=== PATIENT | female | born 1970 | race Caucasian/White ===

== ENCOUNTER → 2022-04-09 | Outpatient (CLI) | payer OTHER, SELFPAY ==
--- NOTE | 2022-04-09 08:30 | BRBX_PTH ---
PATIENT: CHARLEEN HENDERSON LOC: [facility] U#:[id number] AGE/SX: 52/F ROOM: RE04/09/[address]: Dr. Charu Santamaria MD : 1970 BED: DIS: 04/09/2022 SPEC #: [id number] RECD: 04/09/22 09:04 STATUS: DELIO RONNY #: [id number] ANTWON: 04/09/22 08:[address]: Charu Santamaria DEPT: SURGICAL PATHOLOGY RECD BY: Sandy Caballero Tissues: Left breast, NOS Procedures: Surgery Specimen Level IV HEADER OPERATION: Left breast mass biopsy PRE-OP DIAGNOSIS: Left breast mass TISSUE SUBMITTED: Left breast tissue 4 o?clock, 6 cm from nipple FIXATION TIME: 11 hours MICROSCOPIC DIAGNOSIS Left breast at 5 o?clock, core biopsy: Densely collagenized stroma. Focal non-proliferative fibrocystic change. Lobular involutional change. Focal banal microcalcifications. No evidence of malignancy. AM:mckenna 04/10/2022 COMMENT This case was discussed with Dr. Santamaria 04/10/[address] Olivo MICROSCOPIC DESCRIPTION Slides are reviewed. GROSS DESCRIPTION Received in fixative is one container labeled with the patient's name and designated left breast tissue. The specimen consists of multiple elongated fragments of belle-yellow tissue that in aggregate measure 1.5 x 0.2 x 0.1 cm. The specimen is totally submitted in one cassette. / AM:mckenna 04/09/2022 TC:5 CPT: 49036
== END | disposition home or self-care (01) ==
PROVIDERS: Visit Provider Surgery
DX: N60.12 Diffuse cystic mastopathy of left breast (principal)
CPT/HCPCS: 88305

== ENCOUNTER 2022-04-28 09:14 | Day surgery (SDC) | payer OTHER, SELFPAY ==
--- NOTE | 2022-04-28 09:50 | HP.PCM_ITS ---
History and Physical Date of Admission: 04/28/22 Date of Service:? 04/21/22 MR#: [id number] Acct: [id number] Name:CHARLEEN VOGT Rep #: [id number] : 1970 ? ? Provider: Dr. Charu Santamaria MD Age/Sex:? 52/F ? ? [place] [facility] [place] [place] Status: Signed Intake Intake Visit Reasons:?DISCUSS RESULTS Chief Complaint: birads left breast Allergies sulfamethoxazole [From Bactrim] Allergy (Intermediate, Verified 04/22/22 10:03) Swellingtrimethoprim [From Bactrim] Allergy (Intermediate, Verified 04/22/22 10: 03) Swelling Medications aspirin 81 mg chewable tablet 81 mg PO DAILY 04/09/22 [History Confirmed 04/22/22] cholecalciferol (vitamin D3) 125 mcg (5,000 unit) capsule 125 mcg PO DAILY 04/09/22 [History Confirmed 04/22/22] PFSH Medical History?(Updated 04/22/22 @ 10:11 by Yanelis White) Alcohol use Easy bruising Excessive bleeding H/O: stroke History of echocardiogram Non-smoker Wears glasses Surgical History?(Updated 04/22/22 @ 10:11 by Yanelis White) History of back surgery History of endometrial ablation History of tubal ligation Family History? Father Colon cancerMother Hypertension Social History? Smoking Status:? Never smoker alcohol intake:? current alcohol intake frequency: a few times a month substance use type:? does not use HPI HPI Surgical H&P: Yes HPI: 52-year-old female presents status post left breast biopsy to discuss pathology with her .? Pathology showed dense colonized stroma, no malignancy.? On reviewing the ultrasound the lesion is irregular with shadowing however the report does not state this and only states that hypoechoic.? Thus it is discordant and recommend excisional biopsy. ROS Breast Breast: Yes left breast lump, abnormal mammogram and abnormal US; No right breast lump, nipple discharge or breast enlargement Exam Const General: cooperative, healthy appearing, comfortable and no acute distress Neck Neck: normal visual inspection Chest Other: Left breast: Previous biopsy site healing well. Resp Effort & Inspection: normal respiratory effort Cardio Rate: regular rate GI Inspection: non-distended Palpation: soft Skin General: no rashes or lesions noted Neuro General: patient oriented x3 Psych Affect: normal affect Assessment and Plan Assessment and Plan (1) Breast mass, left: ?Status:?Acute Plan We will plan for an excisional left breast biopsy with ultrasound-guided wire localization.? Discussed the procedure including risk including but not limited to bleeding, infection, need for further surgery.? Patient and her are agreeable with plan. Charu Santamaria M.D. Pager: [phone] [facility] [address] [place] [address], [address] [place] [address] Office: [phone] Coding Level of Care Code Off vis,est,level 3 Diagnoses Breast mass, left? N63.20 04/22/22 1419 <Electronically signed by Charu Santamaria MD> Date Charu Santamaria MD
[2022-04-28 10:07] VITALS: BP 127/89; PULSE 77; RESP 18; TEMP 36.6; O2SAT 99; BMI 28.2
[2022-04-28] MEDS: Lactated Ringers 1,000 ML 15 ML IV (10:09)
[2022-04-28] MEDS: Cefazolin 2 GM in 0.9% Normal Saline 100 ML IV (12:00)
--- NOTE | 2022-04-28 12:33 | BR_PTH ---
PATIENT: CHARLEEN HENDERSON LOC: [facility] [place] U#:[id number] AGE/SX: 52/F ROOM: RE04/28/[address]: Dr. Charu Santamaria MD : 1970 BED: DIS: 04/28/2022 SPEC #: [id number] RECD: 04/28/22 12:37 STATUS: DELIO REEarlene #: [id number] ANTWON: 04/28/22 12:[address]: Charu Santamaria DEPT: SURGICAL PATHOLOGY RECD BY: Sandy Caballero ENTERED: 04/28/22 13:05 SP TYPE: MAMOPLASTY OTHR DR: Keli Brantley PA-C Tissues: Left breast, NOS Procedures: Surgery Specimen Level V HEADER OPERATION: Left breast ultrasound-guided wire localization, excisional biopsy PRE-OP DIAGNOSIS: Left breast mass TISSUE SUBMITTED: Left breast excisional biopsy (short suture - superior, long suture - lateral) MICROSCOPIC DIAGNOSIS Left breast, excisional biopsy with wire localization: Fibrocystic changes and intraductal hyperplasia without atypia. Fibroadenoma (0.5 cm in greatest dimension). Extensive dense fibrosis. Changes consistent with previous biopsy site. Negative for malignancy. RUDDY:mckenna 05/01/2022 COMMENT Please make reference to previous specimen ([id number]) left breast at 5 o?clock, core biopsy with diagnosis of ?densely collagenized stroma, focal nonproliferative fibrocystic change and lobular involution.? MICROSCOPIC DESCRIPTION Slides are reviewed. GROSS DESCRIPTION Received in fixative is one container labeled with the patient's name and designated left breast excisional biopsy. The specimen consists of a piece of fibroadipose tissue with wire localization measuring 4 x 3.5 x 3 cm. The specimen is oriented as follows: short suture - superior, long suture - lateral. The specimen is inked as follows: anterior - yellow, posterior - black, superior - blue, inferior - green, medial - red and lateral - orange. Sections reveal belle, indurated cut surfaces. No well-defined mass is identified. The entire specimen is submitted in 11 cassettes from lateral to medial margin. Sections will be submitted after additional fixation. Cassette 1 contains the most lateral margin and cassette 11 contains the medial margin. / RUDDY:mckenna 04/29/2022 TC:5 CPT: 10265
--- NOTE | 2022-04-28 12:34 | BI_ITS ---
SURGICAL BREAST SPECIMEN RADIOGRAPH CLINICAL: Document presence of tissue clip marker in biopsy specimen. FINDINGS: Specimen shows presence of tissue clip marker. Electronically Signed: Efrem Lynn MD at 13:00 EST , BI/Breast Biopsy Specimen IMPRESSION: undefined
--- NOTE | 2022-04-28 12:36 | OP.PCM_ITS ---
Report of Operation Date of Procedure: 04/28/22 Pre-Operative Diagnosis: Left breast mass Post-Operative Diagnosis: Same Surgery/Procedure Performed:: Left breast ultrasound-guided wire localization excisional breast biopsy Surgeon: Charu Santamaria program facilitator: Debbie Sotomayor Type of Anesthesia: General/Supplemental Anesthesiologist: Kwaku Jj Special Medications: Ancef 2 g IV x1 Specimen's removed: Left breast mass Estimated Blood Loss (mL): < 10 cc Description of Procedure: The patient was taken to the operating room and general anesthesia was induced. The left breast and axilla were prepped and draped in usual sterile fashion. A timeout was completed verifying correct patient, procedure, site, positioning, special equipment prior to beginning procedure. Ultrasound was use for localization of the breast mass using the Kopan's needle. The wire was placed at the mass. A radial incision was planned in such a way as to minimize the amount of dissection to reach the mass. Flaps were raised in the location of the wire confirmed. The wire was delivered into the wound. 2 silk [id number] stay suture was placed around the wire and used for traction. Dissection was then taken down circumferentially, taking care to include the entire localization needle and wide margin of grossly normal tissue. The specimen and entire localizing wire were removed. The specimen was oriented and sent to radiology with the localization studies. Confirmation was received that the entire target lesion had been resected. The cavity was irrigated. Hemostasis was checked. The breast incision was closed with interrupted sutures of 3-0 Vicryl and subcuticular sutures of 4-0 Monocryl. No attempt was made to close the space. Steri-Strips and OpSite and supportive bra placed. The patient tolerated procedure well was taken to the postanesthesia care in stable condition Complications none
[2022-04-28] MEDS: Bupivacaine 0.25%-Epi/Pf 1:200,000 10 ML (12:37)
--- NOTE | 2022-04-28 12:42 | DCINST_ITS ---
Discharge Instructions Diet Discharge Diet: No restrictions Activity Discharge Activity: May Not Drive (for 2-3 days or while taking narcotic pain meds.) May shower in (days): 1 Lifting Restrictions: 10 pounds for 1 week. Dressing / Incision Call your doctor if your incision/area has: Continuous Slow Oozing, Sudden Increased Bleeding, Increased Pain/ Swelling and Increased Redness Call your doctor if you observe: Fever of 101 or Higher Suture Line Care: Avoid Pulling/Pushing and Avoid Pinching/Bending Remove Dressing in: 1 day Additional Dressing/Incision Instructions:: Remove bulky dressing tomorrow. May leave any op-site dressing for 3-4 days. Okay to remove Steri-Strips from the breast incision in 7 to 10 days. Follow Up Care Please Follow Up With: Charu Santamaria MD When: Please call [phone] for an appointment to be seen in 2 week. Test Results: Test results from this visit will be discussed in further detail at your follow- up appointment, if applicable. Discharge Plan Admission Attending Provider: Charu Santamaria Primary Care Provider: Keli Brantley Discharge Orders/Prescriptions Prescriptions: New hydrocodone-acetaminophen 5-325 mg tablet 1 tab PO Q6H PRN (Reason: pain) 2 Days Qty: 5 0RF Continued cholecalciferol (vitamin D3) 125 mcg (5,000 unit) capsule 125 mcg PO DAILY Held aspirin 81 mg tablet,chewable 81 mg PO DAILY Hold Instructions: Resume on 04/30/22. Referrals / Follow Up: Keli Brantley PA-C [Primary Care Provider] - Disposition Disposition (needs filled in before D/C Order can be placed): Home, Self Care
[2022-04-28 12:54] VITALS: BP 107/77; BP 127/89; PULSE 78; RESP 16; TEMP 36.4; O2SAT 96
[2022-04-28 12:59] VITALS: BP 105/74; BP 127/89; PULSE 76; RESP 16; O2SAT 97
[2022-04-28 13:15] VITALS: BP 117/71; BP 127/89; PULSE 73; RESP 16; O2SAT 99
[2022-04-28 13:30] VITALS: BP 114/86; BP 127/89; PULSE 60; RESP 16; TEMP 36.2; O2SAT 99
[2022-04-28 14:43] VITALS: BP 127/89
== END 2022-04-28 14:50 | disposition home or self-care (01) ==
LOC: SDC 09:21 → AC 09:22
PROVIDERS: PCP Family Medicine; Referring Provider Surgery; Visit Provider Surgery
PROC: (CPT 19125; principal; 2022-04-28 10:45)
DX: D24.2 Benign neoplasm of left breast (principal); Z92.89 Personal history of other medical treatment; N60.12 Diffuse cystic mastopathy of left breast; Z79.82 Long term (current) use of aspirin; R23.3 Spontaneous ecchymoses; Z86.73 Personal history of transient ischemic attack (TIA), and cerebral infarction without residual deficits
CPT/HCPCS: 19125; 00400; 76098; 88305; 88307; J7120; J2405

== ENCOUNTER 2024-12-27 11:11 | Day surgery (SDC) | payer OTHER, SELFPAY ==
[2024-12-27] VITALS (8 sets, daily range): BP systolic 107–139; BP diastolic 69–91; PULSE 66–84; RESP 12–20; TEMP 36.2–36.4; O2SAT 95–100; BMI 27.8
[2024-12-27] MEDS: Lactated Ringers 1,000 ML 15 ML IV (11:39)
--- NOTE | 2024-12-27 11:46 | H&P.OPEN ---
[facility] - General General Date of Service: 12/27/24 HPI Narrative CHARLEEN HENDERSON, is a 54 F who presents for screening colonoscopy. Patient never had previous colonoscopy. Patient's father did have colon cancer diagnosed age less than 60. Patient denies any chronic abdominal pain/nausea/vomiting/reflux. Patient has bowel movements every other day denies any blood. [facility] Medical History (Updated 12/27/24 @ 11:[address] Charu Santamaria MD) Wears glasses Alcohol use Non-smoker History of echocardiogram H/O: stroke Home Medications ?Medication ?Instructions ?Recorded ?Last Taken ?Type aspirin 81 mg chewable tablet 81 mg PO DAILY 04/09/22 12/19/24 History cholecalciferol (vitamin D3) 125 125 mcg PO DAILY 04/09/22 12/26/24 History mcg (5,000 unit) capsule Allergy/AdvReac Type Severity Reaction Status Date / Time sulfamethoxazole (From Allergy Intermediate Swelling Verified 12/27/24 11:38 Bactrim) trimethoprim (From Bactrim) Allergy Intermediate Swelling Verified 12/27/24 11:38 Family History Father Colon cancer Mother Hypertension Surgical History (Updated 12/25/24 @ 16:09 by Maurisio Matute) S/P lumpectomy, left breast History of endometrial ablation History of tubal ligation History of back surgery Social History Smoking Status: Never smoker alcohol intake: current alcohol intake frequency: a few times a month substance use type: does not use Past Medical/Surgical History Planned Operation Planned Operative Procedure(s): COLONOSCOPY Previous Hospitalizations/Surgeries HX Hospitalizations: No Any Problems With Anesthesia: No You/Your Family Experience Fever (Hyperthermia) With Anes: No Cholinesterase deficiency: No Cardiovascular Hx of Irregular Heartbeat and/or Afib: No Hx Heart Attack: No Hx Congestive Heart Failure: No Hx Hypertension: No Hx Pacemaker: No Respiratory Hx Chronic Obstructive Pulmonary Disease (COPD): No Hx Asthma: No Hx Emphysema: No Hx Sleep Apnea: No Hx Respiratory Tract Infection/Cold (presently): No Do You Snore Loudly (louder than talking or can be heard): No Do You Often Feel Tired/ Fatigued/ Sleepy Dring Daytime?: No Has Anyone Observed You Stop Breathing During Sleep?: No Result (for STOP score): Negative Smoking Status: Never smoker Gastrointestinal Hx Ulcer: No Neurological Hx Seizures: No Hx Head/Neck Injury: Yes Hx Headaches: Yes Hx Back Injury/Pain: Yes Does patient have nerve stimulator: No Miscellaneous Recent Exposure to Contagious Disease: No Allergies sulfamethoxazole (From Bactrim) Allergy (Intermediate, Verified 12/27/24 11:38) Swelling face trimethoprim (From Bactrim) Allergy (Intermediate, Verified 12/27/24 11:38) Swelling face Discharge After D/C, Where Do you Plan to Go: Return Home Vital Signs Vital Signs Vital Signs: 12/27/24 11:39 12/27/24 11:39 Temperature 97.6 F L Temperature Source Temporal Pulse Rate 66 Respiratory Rate 17 Respiratory Pattern Normal Blood Pressure 139/91 H Blood Pressure Mean 107 Blood Pressure Source Monitor Blood Pressure Position Semi-Fowlers Blood Pressure Location Right Arm Pulse Ox 100 Oxygen Delivery Method Room Air Weight Weight: 152 lb 1.903 oz Body Mass Index (BMI) 27.8 Physical Exam Const alert, oriented x3 and no apparent distress HEENT normocephalic and head/scalp atraumatic Resp normal respiratory effort Cardio regular rate GI soft to palpation and non-tender; Negative for non-distended Palpation: Negative for guarding Extremity no clubbing, cyanosis or edema Skin no rashes or lesions noted Neuro CN's II-XII intact bilaterally Psych mental status grossly normal Assessment & Plan Assessment/Plan (1) Encounter for screening for malignant neoplasm of colon: (2) Family history of colon cancer in father: Surgery Risks - Colonoscopy I discussed with the patient the risks of the procedure: Yes Risks Include but are not Limited To: Risks include but are not limited to: Bleeding, perforation requiring further surgery, inability to complete colonoscopy requiring barium enema.
--- NOTE | 2024-12-27 12:23 | PCM.PRE.AN2 ---
ASA Classification* ASA Classification ASA Classification: 2 Assessment & Plan Anesthesia* Anesthesia Assessment Anesthesia Assessment: Discussed sedation and/or anesthesia options, risks, benefits, and alternatives with patient/parents/legal guardian/POA. Questions invited. The patient/parents/legal guardian/POA seems to understand and agrees to proceed with anesthesia plan. Reviewed the physical assessment, medical history, allergy history and patient home medications list prior to surgery/procedure/anesthetic and documented any changes. Performed airway and anesthesia risk assessments. Anesthesia Type Anesthesia Type: MAC History Source History Obtained from:: Patient and Chart Anesthesia Focused Assessment* Temperature: 97.6 F Pulse Rate: 66 Blood Pressure: 139/91 Respiratory Rate: 17 Pulse Ox: 100 Oxygen Delivery Method: Room Air Airway Assessment Mouth opens: >3 cm Mallampati Score: II Teeth Condition: Missing (Patient has couple missing teeth. 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 When Was Last Pacemaker Check QUESTION #4 FULL TEXT: You/Your Family Experience fever (hyperthermia) with Anesthesia Last Oral Intake Last Oral intake: Last Oral Intake NPO since 00:00 12/27/24 11:39 Meds taken in AM with sips of water? Meds patient instructed to take am of surgery PONV PONV - filler shredding machine loader: PONV - filler shredding machine loader Female Yes 12/25/24 16:06 HX of Motion Sickness No 12/25/24 16:06 HX of N/V After Surgery No 12/25/24 16:06 Non-Smoker Yes 12/25/24 16:06 Duration of Surgery greater No 12/25/24 16:06 than 60 minutes Number of Risk Factors 2 12/25/24 16:06 PONV Score Moderate Risk 12/25/24 16:06 Height & Weight Height & Weight: Anesthesia: Height & Weight Height 5 ft 2 in 12/27/24 11:39 Weight: 69 kg 12/27/24 11:39 Body Mass Index (BMI) 27.8 12/27/24 11:39 Respiratory Assessment Respiratory Assessment - filler shredding machine loader: Respiratory Tract Infection Hx - filler shredding machine loader Hx Respiratory Tract Infection No 12/27/24 11:47 STOP Sleep Apnea STOP Sleep Apnea - filler shredding machine loader: STOP Sleep Apnea - filler shredding machine loader Hx Hypertension No 12/27/24 11:47 Hx Sleep Apnea No 12/27/24 11:47 CPAP BIPAP Do you snore loudly (louder No 12/27/24 11:47 than talking or can be heard Do you often feel tired/ No 12/27/24 11:47 fatigued/ sleepy during daytime? Has anyone observed you stop No 12/27/24 11:47 breathing during sleep? STOP Results Negative 12/27/24 12:20 QUESTION #5 FULL TEXT : Do you snore loudly (louder than talking or can be heard through closed doors)? 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 Specify any problems Hx of Preganancy in last 3 No 12/25/24 16:06 Months Nurse Filling Out Transfusion [id number] 12/25/24 16:06 & Questions: Date: 12/25/24 12/25/24 16:06 Time: 16:07 12/25/24 16:06 Patient unable to answer at this time (ie. confused, unrespo /Reproduction History /Reproductive History - filler shredding machine loader: /Reproductive Hx- filler shredding machine loader Hx Now Gestational Age (in weeks): EDC: Hx Hx Para Hx Section SAB No 12/25/24 16:06 Active Medications Active Medications: Current Medications Generic Name Dose Route Start Last Admin Trade Name Freq PRN Reason Stop Dose Admin Lactated Ringer's 1,000 mls @ 15 mls/hr 12/27/24 11:30 12/27/24 11:39 IV 15 mls/hr .Q48H QUINN Administration PFSH Medical History Wears glasses Alcohol use Non-smoker History of echocardiogram H/O: stroke Home Medications ?Medication ?Instructions ?Recorded ?Last Taken ?Type aspirin 81 mg chewable tablet 81 mg PO DAILY 04/09/22 12/19/24 History cholecalciferol (vitamin D3) 125 125 mcg PO DAILY 04/09/22 12/26/24 History mcg (5,000 unit) capsule Allergy/AdvReac Type Severity Reaction Status Date / Time sulfamethoxazole (From Allergy Intermediate Swelling Verified 12/27/24 11:38 Bactrim) trimethoprim (From Bactrim) Allergy Intermediate Swelling Verified 12/27/24 11:38 Family History Father Colon cancer Mother Hypertension Surgical History S/P lumpectomy, left breast History of endometrial ablation History of tubal ligation History of back surgery Social History Smoking Status: Never smoker alcohol intake: current alcohol intake frequency: a few times a month substance use type: does not use Review of Systems (Anesthesia) ROS Narrative System reviewed and no additional complaints, except as documented.
--- NOTE | 2024-12-27 12:30 | COLBX_PTH ---
PATIENT: CHARLEEN HENDERSON LOC: [facility] U#:[id number] AGE/SX: 54/F ROOM: RE12/27/[address]: Dr. Charu Satnamaria MD : 1970 BED: DIS: 12/27/2024 SPEC #: [id number] RECD: 12/27/24 13:51 STATUS: DELIO REEarlene #: [id number] ANTWON: 12/27/24 12:[address]: Charu Santamaria DEPT: SURGICAL PATHOLOGY RECD BY: Chano Calderon ENTERED: 12/27/24 14:34 SP TYPE: COLON BX OTHR DR: Keli Brantley PA-C Tissues: A - Ascending colon B - Sigmoid colon biopsy C - Rectum, NOS Procedures: Surgery Specimen Level IV HEADER OPERATION: Colonoscopy PRE-OP DIAGNOSIS: Encounter for screening for malignant neoplasm of colon, family history of colon cancer in father TISSUE SUBMITTED: A- Ascending colon polyp, B- Sigmoid biopsy, C- Rectum biopsy MICROSCOPIC DIAGNOSIS A. Large intestine, ascending polyp, biopsies: - Tubular adenoma - Increased pigmented macrophages in the lamina propria, suggesting melanosis coli B. Large intestine, sigmoid polyp: * Tubular adenoma * Increased pigmented macrophages in the lamina propria, suggesting melanosis coli C. Rectum: * Hyperplastic polyp * Increased pigmented macrophages in the lamina propria, suggesting melanosis coli MICROSCOPIC DESCRIPTION Slides are reviewed. GROSS DESCRIPTION A. Received in fixative is one container labeled with the patient's name and designated Ascending colon polyp. The specimen consists of two irregular fragments of light belle tissue, each measuring 0.3 cm. The specimen is totally submitted in one cassette. B. Received in fixative is one container labeled with the patient's name and designated Sigmoid biopsy. The specimen consists of one irregular fragment of light belle tissue that measures 0.4 cm. The specimen is totally submitted in one cassette. C. Received in fixative is one container labeled with the patient's name and designated Rectum biopsy. The specimen consists of two irregular fragments of light belle tissue that measure 0.3 and 0.5 cm. The specimen is totally submitted in one cassette. AR 12/27/2024 CPT:29961a9
[2024-12-27] MEDS: Lactated Ringers 1,000 ML 1000 ML IV (13:14)
--- NOTE | 2024-12-27 13:37 | OP.PROVAT_ITS ---
12/27/2024 Keli [place] Re : Colonoscopy procedure for Alexa Brantley This procedure was performed on Friday, December 27, 2024. My impressions and recommendations are as follows: Impressions : - Melanosis in the colon. - Four less than 5 mm polyps in the rectum, in the sigmoid colon and in the ascending colon, removed with a cold biopsy forceps. Resected and retrieved. - One less than 5 mm polyp in the ascending colon, removed with a cold snare. Resected and retrieved. - The examination was otherwise normal on direct and retroflexion views. Recommendations : - Discharge patient to home. - Resume previous diet. - Continue present medications. - Await pathology results. - Repeat colonoscopy in 3 years for surveillance based on pathology results. My findings are described in the full procedure note, which is enclosed. If I can be of further assistance, please feel free to contact me at Doctor phone number(s): , Work: . Sincerely, MD Charu Krueger MD 12/27/2024 1:37:03 PM This report has been signed electronically.
--- NOTE | 2024-12-27 13:37 | OP.COLON_ITS ---
Patient Name: Alexa Valero Procedure Date: 12/27/2024 1:02 PM Date of : 1970 Age: 54 Procedure: Colonoscopy Indications: Screening in patient at increased risk: Colorectal cancer in father before age 60 Providers: Charu Santamaria MD Referring MD: Charu Santamaria MD Medicines: Monitored Anesthesia Care Patient Profile: This is a 54 year old female. Last Colonoscopy: none. The patient's first colonoscopy is today. Complications: No immediate complications. Procedure: Pre-Anesthesia Assessment: - Prior to the procedure, a History and Physical was performed, and patient medications and allergies were reviewed. The patient's tolerance of previous anesthesia was also reviewed. The risks and benefits of the procedure and the sedation options and risks were discussed with the patient. All questions were answered, and informed consent was obtained. Prior Anticoagulants: The patient has taken no anticoagulant or antiplatelet agents. ASA Grade Assessment: Per anesthesia. After reviewing the risks and benefits, the patient was deemed in satisfactory condition to undergo the procedure. After I obtained informed consent, the scope was passed under direct vision. Throughout the procedure, the patient's blood pressure, pulse, and oxygen saturations were monitored continuously. The Colonoscope was introduced through the anus and advanced to the cecum, identified by the appendiceal orifice, ileocecal valve and palpation. The colonoscopy was performed without difficulty. The patient tolerated the procedure well. The quality of the bowel preparation was good. Scope In: 1:13:59 PM Scope Withdrawal Time 0 hours 12 minutes 50 seconds Scope Out: 1:31:20 PM Total Procedure Duration Time 0 hours 17 minutes 21 seconds Findings: The perianal and digital rectal examinations were normal. An area of melanosis was found in the entire colon. Four sessile polyps were found in the rectum, sigmoid colon and ascending colon. The polyps were less than 5 mm in size. These polyps were removed with a cold biopsy forceps. Resection and retrieval were complete. A less than 5 mm polyp was found in the ascending colon. The polyp was sessile. The polyp was removed with a cold snare. Resection and retrieval were complete. The exam was otherwise without abnormality on direct and retroflexion views. Impression: - Melanosis in the colon. - Four less than 5 mm polyps in the rectum, in the sigmoid colon and in the ascending colon, removed with a cold biopsy forceps. Resected and retrieved. - One less than 5 mm polyp in the ascending colon, removed with a cold snare. Resected and retrieved. - The examination was otherwise normal on direct and retroflexion views. Recommendation: - Discharge patient to home. - Resume previous diet. - Continue present medications. - Await pathology results. - Repeat colonoscopy in 3 years for surveillance based on pathology results. Procedure Code(s): --- Professional --- 93205, PT, Colonoscopy, flexible; with removal of tumor(s), polyp(s), or other lesion(s) by snare technique 15157, 59, Colonoscopy, flexible; with biopsy, single or multiple Diagnosis Code(s): --- Professional --- Z80.0, Family history of malignant neoplasm of digestive organs K63.89, Other specified diseases of intestine D12.8, Benign neoplasm of rectum D12.5, Benign neoplasm of sigmoid colon CPT copyright 2021 [employer]. All rights reserved. The codes documented in this report are preliminary and upon greige goods inspector review may be revised to meet current compliance requirements. MD Charu Krueger MD 12/27/2024 1:37:03 PM This report has been signed electronically. Number of Addenda: 0 Note Initiated On: 12/27/2024 1:02 PM
--- NOTE | 2024-12-27 13:38 | PCM.POST.ANE ---
Anesthesia: Postop Eval I Current Vital Signs Temperature: 97.1 F Pulse Rate: 73 Blood Pressure: 107/69 Respiratory Rate: 20 Pulse Ox: 96 Oxygen Delivery Method: Room Air Assessment Airway patent: Yes Spontaneous unlabored respirations: Yes Mental status: Awake nausea: No Vomiting: No Anesthesia Complication: No Fluid Hydration Crystalloid volume administer (ml): 300 Total IV fluid infused: 300 Progress Note Anesthesia document: Postop Eval 1 completed: Yes
== END 2024-12-27 14:23 | disposition home or self-care (01) ==
LOC: EN 11:14 → AC 11:16
PROVIDERS: PCP Family Medicine; Referring Provider Surgery; Visit Provider Surgery
PROC: 0DJD8ZZ Inspection of Lower Intestinal Tract, Via Natural or Artificial Opening Endoscopic (ICD-10-PCS; CPT 45378; principal; 2024-12-27 12:25)
DX: Z12.11 Encounter for screening for malignant neoplasm of colon (principal); K63.89 Other specified diseases of intestine; Z80.0 Family history of malignant neoplasm of digestive organs; Z86.73 Personal history of transient ischemic attack (TIA), and cerebral infarction without residual deficits; Z98.51 Tubal ligation status; K62.1 Rectal polyp; K63.5 Polyp of colon; K62.89 Other specified diseases of anus and rectum
CPT/HCPCS: 45385; 45380; 88305